=== PATIENT | female | born 1990 | race African-American/Black ===

== ENCOUNTER → 2021-01-09 09:38 | Outpatient (CLI) | payer MEDICAID ==
[2021-01-09 12:14] LABS: BASOPHILS 0.3 % (0-2); EOSINOPHILS 1.5 % (0-7); HEMATOCRIT 24.2 % (36.0-48.0); IMMATURE GRANULOCYTES 0.3 % (0-5); LYMPHOCYTE ABS# 1.91 10x3/uL (1.18-3.74); LYMPHOCYTES 28.4 % (15-50); MCH 22.3 pg (26.0-34.0); MCHC 30.6 g/dL (31.0-37.0); MCV 72.9 fL (80.0-100.0); MEAN PLATELET VOLUME 10.5 fL (7.4-10.4); MONOCYTES 5.1 % (2-11); NEUTROPHIL ABS# 4.33 10x3/uL (1.56-6.13); NEUTROPHILS 64.4 % (40-80); RBC 3.32 10x6/uL (4.00-5.40); RDW 16.7 % (11.5-14.5); WBC 6.7 10x3/uL (4.8-10.8)
[2021-01-09 12:33] LABS: HEMOGLOBIN 7.4 g/dL (12-16); PLATELET COUNT 279 10x3/uL (130-400)
[2021-01-09 15:25] LABS: BILIRUBIN NEGATIVE (NEGATIVE); KETONE NEGATIVE (NEGATIVE); NITRITE NEGATIVE (NEGATIVE); UROBILINOGEN NORMAL mg/dL (< 2)
[2021-01-09 15:31] LABS: SQUAMOUS EPITHELIAL 0-5 HPF (0-4)
[2021-01-09 15:32] LABS: BACTERIA MODERATE HPF (NONE SEEN)
[2021-01-10 08:13] LABS: RAPID PLASMA REAGIN Non Reactive (Non Reactive)
[2021-01-10 10:11] LABS: HEPATITIS C ANTIBODY <0.1 S/CO RAT (0.0-0.9)
[2021-01-10 11:10] LABS: RUBELLA IGG <0.90 index (Immune >0.99)
[2021-01-12 17:08] LABS: HGB SOLUBILITY (SICKLE SCREEN) Negative (Negative)
== END | disposition home or self-care (01) ==
LOC: D.ER 09:38 → D.LDO 09:38 → EDSTATUS 09:57
PROVIDERS: ATTEND Obstetrics & Gynecology
DX: O26.899 Other specified pregnancy related conditions, unspecified trimester (principal)

== ENCOUNTER 2021-02-03 12:53 | Outpatient (CLI) | payer MEDICAID ==
[~2021-02-03] VITALS: Ht 177.8 cm; Wt 97.7 kg
[2021-02-03 13:46] VITALS: Ht 177.8 cm; Wt 97.7 kg
--- NOTE | 2021-02-03 16:18 | NUR ---
DC INSTRUCTIONS GIVEN TO PT. STATES UNDERSTANDING. DC'D IV CATH FULLY INTACT.
--- NOTE | 2021-02-03 16:20 | NUR ---
PT NOT IN DISTRESS. DENIES PAIN/NEEDS POST TRANSFUSION. PT AMBULATED W/ FAMILY AT 1620.
== END 2021-02-03 16:20 | disposition home or self-care (01) ==
LOC: D.OPS 12:53
PROVIDERS: ATTEND Obstetrics & Gynecology
DX: O99.019 Anemia complicating pregnancy, unspecified trimester (principal)

== ENCOUNTER 2021-02-26 02:32 | Outpatient (CLI) | payer MEDICAID ==
[2021-02-03 13:46] VITALS: BMI 30.9
[2021-02-26 03:57] LABS: BASOPHILS 0.2 % (0-2); EOSINOPHILS 1.9 % (0-7); HEMATOCRIT 23.9 % (36.0-48.0); IMMATURE GRANULOCYTES 0.5 % (0-5); LYMPHOCYTE ABS# 3.01 10x3/uL (1.18-3.74); LYMPHOCYTES 30.7 % (15-50); MCH 21.6 pg (26.0-34.0); MCHC 30.1 g/dL (31.0-37.0); MCV 71.6 fL (80.0-100.0); MEAN PLATELET VOLUME 11.2 fL (7.4-10.4); MONOCYTES 4.4 % (2-11); NEUTROPHIL ABS# 6.12 10x3/uL (1.56-6.13); NEUTROPHILS 62.3 % (40-80); RBC 3.34 10x6/uL (4.00-5.40); RDW 18.4 % (11.5-14.5); WBC 9.8 10x3/uL (4.8-10.8)
[2021-02-26 04:01] LABS: PLATELET COUNT 210 10x3/uL (130-400)
[2021-02-26 04:03] LABS: HEMOGLOBIN 7.2 g/dL (12-16)
[2021-02-26 04:06] LABS: BILIRUBIN NEGATIVE (NEGATIVE); KETONE NEGATIVE (NEGATIVE); NITRITE NEGATIVE (NEGATIVE); UROBILINOGEN NORMAL mg/dL (< 2)
[2021-02-26 04:11] LABS: BACTERIA MODERATE HPF (NONE SEEN); SQUAMOUS EPITHELIAL 0-5 HPF (0-4)
== END 2021-02-26 11:58 | disposition home or self-care (01) ==
LOC: D.LDO 02:32
PROVIDERS: ATTEND Obstetrics & Gynecology
DX: O26.893 Other specified pregnancy related conditions, third trimester (principal); Z3A.35 35 weeks gestation of pregnancy; R10.9 Unspecified abdominal pain; M54.5 Low back pain

== ENCOUNTER 2021-03-10 10:08 | Outpatient (CLI) | payer MEDICAID ==
[~2021-03-10] VITALS: Ht 180.3 cm; Wt 95.5 kg
--- NOTE | 2021-03-10 11:32 | NUR ---
PT SUICIDE RISK SCREENING A 2. PT STATES IT WAS 5 YEARS AGO AND SHE WENT TO A "[facility]." STATES SHE IS GOOD NOW, NO INTERVENTIONS NEEDED FROM STAFF.
[2021-03-10 11:34] VITALS: BP 138/94; Ht 180.3 cm; Wt 95.5 kg
--- NOTE | 2021-03-10 12:06 | NUR ---
1146 1ST UNIT OF PRBCS CHECKED AND STARTED. PATIENT SITTING UP IN BED EATING LUNCH
--- NOTE | 2021-03-10 13:59 | NUR ---
1201 INFUSION CONTINUES WITHOUT PROBLEMS. PATIENT TOLERATING WELL. RATE INCREASED TO 200 ML/HR PER INFUSION PUMP 1220 CONTINUES WITHOUT PROBLEMS, INFUSION INCREASED TO 250 ML/HR
--- NOTE | 2021-03-10 14:00 | NUR ---
1318 1ST UNIT PRBCS COMPLETED WITHOUT PROBLEMS. 2ND UNIT PRBCs STARTED AT 75 ML/HR PER INFUSION PUMP 1345 INFUSION CONTINUES WITHOUT PROBLEMS. RATE INCREASED TO 250 ML/HR
--- NOTE | 2021-03-10 14:57 | NUR ---
1457 TRANSFUSION COMPLETED. JESSE TOLERATED TRANSFUSION WITHOUT PROBLEMS, WILL OBSERVE X30 MINUTES/
--- NOTE | 2021-03-10 15:35 | NUR ---
1530 IV REMOVED WITH CATH INTACT. PATIENT DISCHARGED AMBULATORY,, REFUSES TO RIDE IN WC. DENIES ANY CO. DISCHARGE INSTRUSTIONS REVIEWED AND VERBALIZED UNDERSTANDING PRIOR TO DISCHARGE
== END 2021-03-10 15:30 | disposition home or self-care (01) ==
LOC: D.OPS 10:08
PROVIDERS: ATTEND Obstetrics & Gynecology
DX: O99.019 Anemia complicating pregnancy, unspecified trimester (principal)

== ENCOUNTER 2021-03-18 11:42 | Inpatient (IN) | payer MEDICAID ==
[~2021-03-18] VITALS: Ht 180.3 cm; Wt 90.7 kg
[2021-03-18 12:52] LABS: BASOPHILS 0.3 % (0-2); EOSINOPHILS 1.3 % (0-7); HEMATOCRIT 34.3 % (36.0-48.0); HEMOGLOBIN 10.7 g/dL (12-16); IMMATURE GRANULOCYTES 0.1 % (0-5); LYMPHOCYTE ABS# 1.87 10x3/uL (1.18-3.74); LYMPHOCYTES 26.3 % (15-50); MCH 23.4 pg (26.0-34.0); MCHC 31.2 g/dL (31.0-37.0); MCV 75.1 fL (80.0-100.0); MONOCYTES 5.6 % (2-11); NEUTROPHIL ABS# 4.71 10x3/uL (1.56-6.13); NEUTROPHILS 66.4 % (40-80); RBC 4.57 10x6/uL (4.00-5.40); RDW 20.4 % (11.5-14.5); WBC 7.1 10x3/uL (4.8-10.8)
[2021-03-18 12:58] LABS: PLATELET COUNT 159 10x3/uL (130-400)
[2021-03-18 13:07] LABS: ALBUMIN 2.6 g/dL (3.4-5.0); ALKALINE PHOSPHATASE 149 U/L (30-120); ALT (SGPT) 20 U/L (10-68); BILIRUBIN - TOTAL 1.09 mg/dL (0.2-1.3); CALC OSMOLALITY 268 mosm/kg (275-300); CALCIUM 8.8 mg/dL (8.5-10.1); CARBON DIOXIDE 26.9 mmol/L (21.0-32.0); CHLORIDE - SERUM 103 mmol/L (98-107); CREATININE - SERUM 0.6 mg/dL (0.6-1.3); GLUCOSE 70 mg/dL (74-106); POTASSIUM - SERUM 3.7 mmol/L (3.5-5.1); PROTEIN - SERUM 6.2 g/dL (6.4-8.2); SODIUM 137 mmol/L (136-145); UREA NITROGEN 3 mg/dL (7-18); eGFR NON AFRICAN AMERICAN > 90 mL/min (90-120)
[2021-03-18 13:20] VITALS: BP 172/77; BMI 27.9
[2021-03-18 13:54] LABS: BILIRUBIN NEGATIVE (NEGATIVE); KETONE NEGATIVE (NEGATIVE); NITRITE NEGATIVE (NEGATIVE); UROBILINOGEN NORMAL mg/dL (< 2)
[2021-03-18 13:59] LABS: BACTERIA FEW HPF (NONE SEEN); SQUAMOUS EPITHELIAL 0-5 HPF (0-4)
[2021-03-18 14:09] LABS: UDS - AMPHET NEGATIVE QUAL (NEGATIVE); UDS - BARB NEGATIVE QUAL (NEGATIVE); UDS - BENZO NEGATIVE QUAL (NEGATIVE); UDS - COCAINE NEGATIVE QUAL (NEGATIVE); UDS - OPIATE NEGATIVE QUAL (NEGATIVE); UDS - PCP NEGATIVE QUAL (NEGATIVE); UDS - THC POSITIVE QUAL (NEGATIVE)
--- NOTE | 2021-03-18 18:00 | NUR ---
RECEIVED PT TO LD POST SECTION BY DR. BEGUM AND DR. BARTH, SEE FLOWSHEET. SR UP X2, CALL LIGHT AND PHONE WITHIN REACH.
[2021-03-18 18:02] VITALS: BP 152/86
[2021-03-18 18:20] VITALS: BP 147/79
[2021-03-18 19:51] VITALS: BP 153/89
--- NOTE | 2021-03-18 20:00 | NUR ---
PT A,A,OX4. PIV IN RT HAND INFUSING PITOCIN AT 125ML/HR. PIV IN LT HAND SALINE LOCKED. C/D/I. MATA DRAINING TO BEDSIDE DRAINAGE, 100 MLS DARK YELLOW URINE. FF,MIDLINE, U1. SMALL TO MODERATE AMOUNT RUBRA LOCHIA NOTED WITH EGG SIZED CLOT ON PERIPAD. PERICARE DONE AND PERIPADS CHANGED. BP ELEVATED, SEE FLOWSHEET. SEE FULL ASSESSMENT PER FLOWSHEET. SRUPX2. CALL LIGHT WITHIN REACH.
--- NOTE | 2021-03-18 20:15 | NUR ---
DR BEGUM NOTIFIED OF BP. ORDERS RECEIVED TO START PT ON MAG. SEE ORDERS.
--- NOTE | 2021-03-18 21:26 | NUR ---
ZOFRAN ADMINISTERED FOR NAUSEA. SPRITE PROVIDED.
[2021-03-18 21:27] LABS: BASOPHILS 0.1 % (0-2); EOSINOPHILS 0.1 % (0-7); HEMATOCRIT 38.4 % (36.0-48.0); HEMOGLOBIN 12.5 g/dL (12-16); IMMATURE GRANULOCYTES 0.2 % (0-5); LYMPHOCYTES 12.4 % (15-50); MCH 24.8 pg (26.0-34.0); MCHC 32.6 g/dL (31.0-37.0); MONOCYTES 6.5 % (2-11); NEUTROPHIL ABS# 7.79 10x3/uL (1.56-6.13); NEUTROPHILS 80.7 % (40-80); PLATELET COUNT 151 10x3/uL (130-400); RBC 5.05 10x6/uL (4.00-5.40); RDW 19.8 % (11.5-14.5)
[2021-03-18 21:34] LABS: WBC 9.7 10x3/uL (4.8-10.8)
--- NOTE | 2021-03-18 22:00 | NUR ---
DR BEGUM NOTIFIED OF LABS.BP. ORDER RECEIVED FOR LABETOLOL AND MAG SERUM LABS. SEE NURSING MESSAGE.
[2021-03-18 22:35] VITALS: BP 170/97
[2021-03-18 23:30] VITALS: BP 174/100
--- NOTE | 2021-03-18 23:32 | NUR ---
FF,MIDLINE U2. MODERATE AMOUNT RUBRA LOCHIA NOTED ON PERIPADS. PERICARE DONE AND PADS CHANGED.
--- NOTE | 2021-03-18 23:54 | NUR ---
DR BEGUM NOTIFIED OF BP. ORDER RECEIVED TO RECHECK IN 1 HOUR AND CALL .
[2021-03-19] VITALS (14 sets, daily range): BP systolic 146–168; BP diastolic 74–97; Ht 180.3 cm; Wt 90.7 kg
--- NOTE | 2021-03-19 01:57 | NUR ---
ICE WATER AND PILLOW PROVIDED. PT DENIES NEEDS AT THIS TIME.
--- NOTE | 2021-03-19 02:40 | NUR ---
PT AWAKE, RESTING IN BED. VS, DTRS PER FLOWSHEET.
--- NOTE | 2021-03-19 04:37 | NUR ---
LABETOLOL ADMINISTERED PER EMAR. SMALL AMOUNT RUBRA LOCHIA NOTED ON PERIPADS. PERIPAD CHANGED. MATA BAG EMPTIED. 350 MLS YELLOW URINE IN BEDISIDE MATA DRAINAGE CONTAINER. PT DENIES NEEDS AT THIS TIME.
--- NOTE | 2021-03-19 06:24 | NUR ---
ICE WATER AND COKE PROVIDED, PT DENIES OTHER NEEDS AT THIS TIME.
[2021-03-19 07:05] LABS: BASOPHILS 0.4 % (0-2); EOSINOPHILS 0.6 % (0-7); HEMATOCRIT 36.1 % (36.0-48.0); IMMATURE GRANULOCYTES 0.4 % (0-5); LYMPHOCYTE ABS# 1.51 10x3/uL (1.18-3.74); LYMPHOCYTES 17.8 % (15-50); MCH 24.9 pg (26.0-34.0); MCHC 33.2 g/dL (31.0-37.0); MCV 75.1 fL (80.0-100.0); MONOCYTES 5.6 % (2-11); NEUTROPHIL ABS# 6.37 10x3/uL (1.56-6.13); NEUTROPHILS 75.2 % (40-80); PLATELET COUNT 164 10x3/uL (130-400); RBC 4.81 10x6/uL (4.00-5.40); RDW 19.9 % (11.5-14.5); WBC 8.5 10x3/uL (4.8-10.8)
--- NOTE | 2021-03-19 07:31 | NUR ---
SHIFT ASSESSMENT COMPLETED PER FLOWSHEET. VSS. FF, MIDLINE AND U2 WITH SMALL AMT RUBRA LOCHIA, NO CLOTS NOTED. REPORTS THAT SHE HAS NOT PASSED FLATUS, BUT IS BELCHING OCCASIONALLY. RESP CLEAR AND EQUAL. DTR'S +2 TO BLE. 2+ BLE PITTING EDEMA. SCD'S ON BLE. INCENTIVE SPIROMETER DONE X10 AND COUGH/DEEP BREATHING DONE WITH GOOD EFFORT. DRSG TO LOWER TRANSVERSE ABD INCISION CLEAN DRY AND INTACT, NO DRAINAGE NOTED. I&O DONE PER FLOWSHEET. ICE PACK AND ICE WATER PROVIDED PER REQUEST. INFANT PLACED IN ARMS PER PT REQUEST. SIG OTHER AT BEDSIDE, SUPPORTIVE AND ATTENTIVE TO PT AND INFANT NEEDS.
[2021-03-19 08:14] LABS: RAPID PLASMA REAGIN Non Reactive (Non Reactive)
--- NOTE | 2021-03-19 08:30 | NUR ---
MG CHECK DONE PER FLOWSHEET. B/P 150/93. PERICARE DONE, PADS AND CHUX CHANGED. REPOSITIONED FROM BACK TO L SIDE WITH MIN ASSIST, PILLOWS PLACED BEHIND BACK. SCD'S REMAIN ON BLE. INCENTIVE SPIROMETER DONE X10, COUGH/DEEP BREATHING DONE WITH GOOD EFFORT.
--- NOTE | 2021-03-19 08:43 | NUR ---
DR. BEGUM PAGED WITH IMMEDIATE CALL BACK. B/P READINGS REVIEWED AND MG LAB. ORDERS REC'D.
--- NOTE | 2021-03-19 09:50 | NUR ---
MGSO4 CHECK PER FLOWSHEET. VSS. C/O ABD AND INCISIONAL DISCOMFORT, 5-6, REQUESTS TORADOL. INCENTIVE SPIROMETER DONE X10, COUGH/DEEP BREATHING DONE WITH GOOD EFFORT. SCD'S ON BLE. DENIES NEEDS. BED IN LOW POSITION WITH SRUP X2.
--- NOTE | 2021-03-19 10:01 | NUR ---
TORADOL ADMINISTERED PER FLOWSHEET. DENIES ADDITIONAL NEEDS. REPOSITIONED INDEPENDENTLY TO R SIDE. SCD'S ON BLE. INCENTIVE SPIROMETER DONE X10. COUGH AND DEEP BREATHING DONE WITH GOOD EFFORT.
--- NOTE | 2021-03-19 10:48 | NUR ---
MGSO4 CHECK DONE PER FLOWSHEET. VSS. ICE WATER PROVIDED. PERICARE DONE AND PADS CHANGED. DENIES PAIN.
--- NOTE | 2021-03-19 11:32 | NUR ---
MGSO4 CHECK DONE PER FLOWSHEET. VSS. FF, MIDLINE AND U2 WITH SMALL AMT RUBRA LOCHIA, NO CLOTS NOTED. SIG OTHER RESTING ON COUCH AT BEDSIDE. REFUSES INCENTIVE SPIROMETER DONE X10. SCD'S REMAIN ON BLE.
--- NOTE | 2021-03-19 12:21 | NUR ---
DR. BEGUM PAGED TO DISCUSS ADVANCING DIET AND D/C'ING MGSO4 PER PT STATEMENT.
--- NOTE | 2021-03-19 12:58 | NUR ---
MGSO4 D/C'D PER ORDER. L HAND PIV REMOVED WITH TIP INTACT. R HAND PIV SL. MATA D/C'D WITH 400 MLS YELLOW URINE PRESENT. POC DISCUSSED WITH PT AND SIG OTHER, BOTH VERBALIZE UNDERSTANDING. INFANT TO ROOM PER PT REQUEST. BED IN LOW POSITION WITH SRUP X2. CALL LIGHT AND PHONE WITHIN REACH. WILL CONTINUE TO MONITOR.
--- NOTE | 2021-03-19 14:38 | NUR ---
MEDICATED PER EMAR FOR C/O OF ABD AND INCISIONAL DISCOMFORT. UP TO BR, WITH STANDBY ASSIST, STEADY GAIT NOTED. VOIDED 400 MLS IN HAT WITHOUT DIFFICULTY. PERICARE DONE. PADS AND PANTIES PROVIDED. GOWN CHANGED. ORAL CARE PER PT. DENIES ADDITIONAL NEEDS. PT SITTING ON EDGE OF BED AND DENIES NEEDS. CALL LIGHT PLACED WITHIN REACH. BED IN LOW POSITION WITH SRUP X2.
--- NOTE | 2021-03-19 15:29 | NUR ---
PAIN REASSESSMENT COMPLETED. 01/14. DENIES NEED FOR ADDITIONAL INTERVENTION. BED IN LOW POSITION WITH SRUP X2. CALL LIGHT AND PHONE WITHIN REACH. WILL CONTINUE TO MONITOR. ICE WATER PROVIDED.
--- NOTE | 2021-03-19 16:23 | NUR ---
RESTING WITH EYES CLOSED IN SEMI-FOWLERS POSITION, RESP REGULAR AND UNLABORED, NO S/S OF DISTRESS NOTED. IN NBN. BED IN LOW POSITION WITH SRUP X2. CALL LIGHT AND PHONE WITHIN REACH.
--- NOTE | 2021-03-19 17:41 | NUR ---
C/O ABD AND INCISIONAL DISCOMFORT/SORENESS. B/P ELEVATED AT 169/96, REPORTS TAHT SHE JUST GOT BACK TO BED FROM VOIDING. FF, MIDLINE AND U2 WITH SCANT RUBRA LOCHIA, NO CLOTS NOTED. WILL RECHECK B/P IN 15-20 MINUTES. INFANT TO ROOM PER PT REQUEST. ICE WATER PROVIDED.
--- NOTE | 2021-03-19 18:09 | NUR ---
REQUEST NORCO AND PROVIDED PER ORDER AND PT REQUEST. SIG OTHER AT BEDSIDE AND PT ARGUING WITH HIM AT THIS TIME. B/P 168/97. PT REPORTS THAT SHE IS IRRIATED WITH SIG OTHER AND HURTING. WILL NOTIFY
--- NOTE | 2021-03-19 18:15 | NUR ---
DR. BARTH CONTACTED, B/P READINGS REPORTED WELL PT REPORTS OF PAIN AND ARGUING WITH SIG OTHER, BEING ASSYMPTOMATIC. INTERVENTIONS DONE REPORTED. ORDERS REC'D.
--- NOTE | 2021-03-19 18:20 | NUR ---
PT UPDATED ON POC REGARDING ELEVATED B/P, VERBALIZES UNDERSTANDING. MEDICATED PER EMAR. RESTING IN OPEN CRIB AT BEDSIDE, PT REQUESTS TO KEEP INFANT AT BEDSIDE. ICE WATER PROVIDED, DENIES ADDITIONAL NEEDS. PAIN 02/14.
--- NOTE | 2021-03-19 18:50 | NUR ---
DR BARTH CALLS UNIT REQUESTING REPORT ON BP READING. SAME PROVIDED. NEW ORDERS FOR PROCARDIA 10MG X1 TAB NOW AND THEN FOLLOW UP WITH 100MG LABETALOL Q8H.
--- NOTE | 2021-03-19 19:25 | NUR ---
RN TO BEDSIDE. SHIFT ASSESSMENT COMPLETED AT THIS TIME. SEE FLOWSHEET. PROCARDIA 10MG X1 TAB GIVEN PER ORDERS. SEE EMAR FOR ADMINISTRATION. INFANT SWADDLED IN BLANKETS X2 PER REQUEST AND HANDED BACK TO PT. HR-RRR, PPP, LUNGS CTAB, BS X4. PT RATES PAIN 3/10 AND TOLERABLE. DENIES FURTHER NEEDS AT THIS TIME. WILL CONTINUE TO MONITOR.
--- NOTE | 2021-03-19 20:55 | NUR ---
MILK OF MAG GIVEN PER ORDERS. SEE EMAR FOR ADMINISTRATION. PT DENIES FURTHER NEEDS AT THIS TIME.
--- NOTE | 2021-03-19 21:26 | NUR ---
ROUNDS MADE. 600ML BLOOD TINGED URINE EMPTIED FROM [place] HAT. ADV PT SHE NO LONGER NEEDS TO COLLECT URINE. UNDERSTANDING VERBALIZED. PT WAS SITTING UP IN BED HOLDING/ROCKING STATING, "SHE'S JUST FUSSING." INFANT SWADDLED IN BLANKETS X2 WITH HAT IN PLACE AND PLACED SUPINE IN OPEN CRIB AT BEDSIDE. NO FURTHER NEEDS VOICED AT THIS TIME.
--- NOTE | 2021-03-19 22:06 | NUR ---
NORCO 10/325MG X1 TAB GIVEN PER ORDERS FOR PAIN RATED 5/10 AT THIS TIME. PT DENIES FURTHER NEEDS. WILL CONTINUE TO MONITOR.
[2021-03-20] VITALS (8 sets, daily range): BP systolic 143–171; BP diastolic 82–101
--- NOTE | 2021-03-20 00:46 | NUR ---
PT REQUESTS INFANT TO NBN. K. REASONS, RN TO ROOM FOR SAME. PT DENIES PAIN OR NEEDS. WILL CONTINUE TO MONITOR.
--- NOTE | 2021-03-20 02:05 | NUR ---
RN TO BEDSIDE. PT AWAKENED TO LIGHT VERBAL STIMULI. RATES PAIN 5/10 AT THIS TIME. VSS. LABETALOL 100MG X1 TAB GIVEN PER ORDERS. NORCO 10/325MG X1 TAB GIVEN PER ORDERS AND PT REQUEST. SEE EMAR FOR ADMINISTRATION. NBN TO ROOM WITH . LEFT IN OPEN CRIB AT BEDSIDE, SLEEPING. NO FURTHER NEEDS VOICED. WILL CONTINUE TO MONITOR.
--- NOTE | 2021-03-20 04:50 | NUR ---
rounds made. mom sitting up in bed with up in arms. denies pain or needs at this time.
--- NOTE | 2021-03-20 06:25 | NUR ---
ROUNDS MADE. PT SITTING UP IN BED WITH INFANT UP IN ARMS. DENIES PAIN OR NEEDS.
--- NOTE | 2021-03-20 07:21 | NUR ---
RESTING QUIETLY IN SEMI-FOWLERS POSITION WITH EYES CLOSED. RESP REGULAR AND UNLABORED, NO S/S OF DISTRESS NOTED. SIG OTHER RESTING ON COUCH AT BEDSIDE. BED IN LOW POSITION WITH SRUP X2. CALL LIGHT AND PHONE WITHIN REACH.
--- NOTE | 2021-03-20 08:47 | NUR ---
SHIFT ASSESSMENT COMPLETED PER FLOWSHEET, B/P ELEVATED, WILL NOTIFY MD. C/O ABD AND INCISIONAL DISCOMFORT AND HEADACHE. MEDICATED PER EMAR. FF, MIDLINE AND U2 WITH SMALL AMT RUBRA LOCHIA, NO CLOTS NOTED. REPORTS THAT SHE IS PASSING FLATUS AND VOIDING WITHOUT DIFFICULTY, REQUESTS GAS-X AND PROVIDED PER REQUEST. LOWER TRANSVERSE ABD INCISION WELL APPROXIMATED WITH ALISSA INTACT. EDUCATED ON INCISIONAL CARE, VERBALIZES UNDERSTANDING AND DENIES QUESTIONS. POC DISCUSSED WITH PT, VERALIZES UNDERSTANDING AND DENIES QUESTIONS. BED IN LOW POSITION WITH SRUP X2. REFUSES SCD'S, EDUCATION PROVIDED. SIG OTHER VOICING THAT HE IS TIRED D/T HAVING TO BE UP AT 0300 TO CARE FOR INFANT, POLICY EXPLAINED. PT VERBALIZES TO SIG OTHER THAT SHE IS IRRITATED AND TIRED OF HIM COMPLAINING ABOUT CARING FOR INFANT. SIG OTHER ENCOURAGED TO LEAVE UNIT, STATES THAT HE NEEDS TO GO TO HOME AND WILL RETURN AT A LATER TIME. LIGHTS OFF AND PT ENCOURAGED TO REST.
--- NOTE | 2021-03-20 08:54 | NUR ---
DR. BEGUM PAGED TO REPORT B/P READINGS AND INTERVENTIONS AT THIS TIME.
--- NOTE | 2021-03-20 08:56 | NUR ---
CALLBACK TO UNIT REC'D FROM DR. BEGUM. B/P READINGS AND INTERVENTIONS REPORTED. UPDATED ON LAST MED DOSES. PER DR. BEGUM REPEAT B/P AND REPORT BACK IN 30 MINUTES.
--- NOTE | 2021-03-20 09:29 | NUR ---
PAIN REASSESSMENT COMPLETED. 01/14. REPORTS HEADACHE IS IMPROVING. B/P RECHECK DONE, 141/89. CURRENTLY IN SEMI-FOWLERS POSITION WITH LIGHTS OFF, IN NBN AND SIG OTHER OUT OF ROOM CURRENTLY. UPDATED ON POC, VERBALIZES UNDERSTANDING AND APPRECIATION.
--- NOTE | 2021-03-20 09:35 | NUR ---
DR. BEGUM PAGED TO NOTIFY OF REPEAT B/P READING AND PT REPORTS OF IMPROVING HEADACHE. NO ORDERS REC'D.
[2021-03-20 11:11] LABS: UDSC - AMPHET Negative ng/mL (Cutoff=1000); UDSC - BARB Negative ng/mL (Cutoff=300); UDSC - BENZO Negative ng/mL (Cutoff=300); UDSC - COC Negative ng/mL (Cutoff=300); UDSC - METH Negative ng/mL (Cutoff=300); UDSC - OPIATES Negative ng/mL (Cutoff=300); UDSC - PCP Negative ng/mL (Cutoff=25); UDSC - PROPOXY Negative ng/mL (Cutoff=300)
--- NOTE | 2021-03-20 12:11 | NUR ---
DR. BEGUM CALLS UNIT, B/P READING REPORTED. ORDERS REC'D.
--- NOTE | 2021-03-20 15:39 | NUR ---
C/O SLIGHT HEADACHE AND ABD CRAMPING, 12/17. B/P RECHECK DONE, WILL NOTIFY DR. BEGUM. DR. ALCARAZ AT BEDSIDE, DISCUSSING POC OF WITH PT. ICE WATER PROVIDED. LIGHTS OFF AND PT ENCOURAGED TO REST. ON PHONE WITH SIG OTHER AT THIS [place]URE[place]. BED IN LOW POSITION WITH SRUP X2. CALL LIGHT AND PHONE WITHIN REACH.
--- NOTE | 2021-03-20 15:57 | NUR ---
DR. BEGUM PAGED WITH IMMEDIATE CALLBACK. B/P READING AND C/O "SLIGHT" HEADACHE REPORTED. ORDERS REC'D.
--- NOTE | 2021-03-20 17:39 | NUR ---
Procardia XL given as scanned to emar. Pt rates pain at 4/10, [place] given po. Bonding with , call light in reach with side rails up x 2.
--- NOTE | 2021-03-20 19:00 | NUR ---
RECEIVED SHIFT REPORT FROM TREY BERRY RN
--- NOTE | 2021-03-20 19:45 | NUR ---
ASSESSMENT PER FLOW SHEET, VS OBTAINED, SALINE LOCK IN RIGHT HAND INTACT WITH NO REDNESS OR EDEMA, FF, ML, U/2, SCANT VAG BLEEDING WITH NO CLOTS NOTES, BIKINI INC WITH ALISSA CDI WIT NO DRAIANGE NOTED, YU PAD OVER INC FOR COMFORT AND MOISTURE CONTROL, PT REPORTS FLATUS, NO BM TODAY, AND VOIDING WITH NO DIFFICULTY, PT REPORTS PAIN 3/10, REQUESTED AND SERVED SANDWICH TRAY AND FRESH H20, INFORMED PT THAT I WILL TALK TO DR BARTH ABOUT BP, PT VERBALIZES UNDERSTANDING, DENIES FURTHER NEEDS OR QUESTIONS AT THIS TIME, INFANT IN OPEN CRIB CART AT BEDSIDE
--- NOTE | 2021-03-20 20:00 | NUR ---
DR BARTH ON UNIT, REPORT OF BP, ORDERS TO ADM PROCARDIA 10MG PO NOW AND NOTIFY HER IF BP IS 160/90
--- NOTE | 2021-03-20 20:20 | NUR ---
PT BOTTLE FEEDING INFANT, INFORMED PT THAT I WILL ADM PROCARDIA SOON IT IT PLACED ON EMAR BY PHARMACY, PT VERBALIZES UNDERSTANDING
--- NOTE | 2021-03-20 20:35 | NUR ---
PT HOLDING INFANT, ADM PROCARDIA 10MG PER MD ORDERS, SEE EMAR, PT DENIES ANY NEEDS AT THIS TIME
--- NOTE | 2021-03-20 21:16 | NUR ---
PT AWAKE, HOLDING INFANT, WENT TO ADM MOM AND AFTER OPENING IT UP, PT DECIDED SHE DIDN'T WANT TO TAKE IT, BP OBTAINED, PT RATES INC PAIN 3-4, INFORMED PT THAT I WILL BRING PAIN MED BACK IN A FEW MINUTES, PT VERBALIZES UNDERSTANDING
--- NOTE | 2021-03-20 21:24 | NUR ---
DR BARTH ON UNIT, REPORT OF BP, ORDERS TO GO AHEAD AND ADM PAIN MED AND RECHECK BP IN AN HOUR, ORDERS READ BACK AND VERIFIED
--- NOTE | 2021-03-20 21:27 | NUR ---
ADM KEYS PER MD ORDERS, SEE EMAR, PT DENIES FURTHER NEEDS
--- NOTE | 2021-03-20 22:23 | NUR ---
PT AWAKE, HOLDING INFANT, OBTAINED BP, PT DENIES PAIN OR BECERRA, DENIES NEEDS AT THIS TIME, FOB AT BEDSIDE
--- NOTE | 2021-03-20 22:27 | NUR ---
DR BARTH ON UNIT, REPORT OF BP, DR BARTH WILL WRITE ORDERS
--- NOTE | 2021-03-20 22:38 | NUR ---
DR BARTH REPORTS TO ADM PROCARDIA 10MG PO NOW
--- NOTE | 2021-03-20 22:43 | NUR ---
BEFORE ADM OF PROCARDIA, BP OBTAINED AGAIN, BP 155/89, INFORMED DR BARTH, DR BARTH REPORTS TO HOLD PROCARDIA AT THIS TIME, RETAKE BP IN ABOUT 45 MINUTES, AND IF BP IS 160/90, GO AHEAD AND ADM PROCARDIA, ORDERS READ BACK AND VERIFIED
--- NOTE | 2021-03-20 23:12 | NUR ---
PT AWAKE, HOLDING INFANT, VS OBTAINED, PT REQUESTED AND SERVED FRESH H20, DENIES FURTHER NEEDS OR PAIN AT THIS TIME, FOB ASLEEP AT BEDSIDE
--- NOTE | 2021-03-20 23:28 | NUR ---
DR BARTH ON UNIT, REPORT OF BP, ORDERS TO HOLD PROCARDIA AT THIS TIME
--- NOTE | 2021-03-21 02:03 | NUR ---
PT AWAKE, HOLDING INFANT, C/O INC PAIN AND CRAMPING, ADM NORCO AND MOTRIN PER MD ORDERS, SEE EMAR, PT DENIES FURTHER NEEDS, FOB ASLEEP AT BEDSIDE
[2021-03-21 04:05] VITALS: BP 163/91
--- NOTE | 2021-03-21 04:05 | NUR ---
PT AWAKE, HOLDING INFANT, VS OBTAINED, TO NSY VIA OPEN CRIB CART PER THIS RN
--- NOTE | 2021-03-21 04:10 | NUR ---
DR BARTH ON UNIT, REPORT OF BP 163/91, ORDERS TO ADM PROCARDIA 10MG
--- NOTE | 2021-03-21 04:11 | NUR ---
ADM PROCARDIA PO PER MD ORDERS, SEE EMAR
[2021-03-21 05:54] VITALS: BP 130/77
--- NOTE | 2021-03-21 05:54 | NUR ---
PT RESTING, OBTAINED BP, PT DENIES NEEDS OR PAIN AT THIS TIME, IN OPEN CRIB CART AND FOB AT BEDSIDE
--- NOTE | 2021-03-21 06:56 | NUR ---
SHIFT REPORT TO DAY SHIFT
[2021-03-21 08:30] VITALS: BP 174/104
[2021-03-21 10:08] VITALS: BP 178/96
[2021-03-21 10:09] VITALS: BP 163/85
== END 2021-03-21 12:16 | disposition left against medical advice (07) | DRG 785 ==
LOC: D.LDO 11:42 → D.LD 13:16
PROVIDERS: ADMIT Obstetrics & Gynecology; ATTEND Obstetrics & Gynecology
PROC: 0UB70ZZ Excision of Bilateral Fallopian Tubes, Open Approach (ICD-10-PCS; 2021-03-18)
PROC: 10D00Z1 Extraction of Products of Conception, Low, Open Approach (ICD-10-PCS; principal; 2021-03-18 13:00)
DX: O14.94 Unspecified pre-eclampsia, complicating childbirth (principal); Z3A.37 37 weeks gestation of pregnancy; Z37.0 Single live birth; O34.219 Maternal care for unspecified type scar from previous cesarean delivery; Z30.2 Encounter for sterilization

== ENCOUNTER 2021-03-23 14:10 | Inpatient (IN) | payer MEDICAID ==
[~2021-03-23] VITALS: Ht 180.3 cm; Wt 89.7 kg
--- NOTE | 2021-03-23 14:25 | NUR ---
ARRIVED TO ED C/O PAIN IN SPINE AND STOMACH. ALSO C/O N/V. PT IS S/P CSECTION X 2 DAYS. UPON ARRIVAL B/P WAS 204/105 WITH HR OF 47. EKG DONE, IV SITED AND B/P 203/100 WITH HR 59. HYDRAZALINE 10MG ADMINISTERED ALONG WITH 8 OF ZOFRAN. B/P AT 195/98. MAG SULFATE STARTED IV OVER 1 HOUR. ANOTHER 10MG OF HYDRAZALINE ADMINISTERED IV B/P 188/104 CARDIOLOGY HERE AND 60MG OF PROCARDIA ORDERED PO ALONG WITH POTASSIUM PO. 1540: OFF TO XRAY FOR CT B/P 166/97
[2021-03-23 14:43] LABS: HEMATOCRIT 34.9 % (36.0-48.0); HEMOGLOBIN 11.2 g/dL (12-16); LYMPHOCYTES 23.4 % (15-50); MCH 24.5 pg (26.0-34.0); MCHC 32.2 g/dL (31.0-37.0); MCV 75.9 fL (80.0-100.0); MEAN PLATELET VOLUME 9.3 fL (7.4-10.4); NEUTROPHILS 66.6 % (40-80); RDW 23.7 % (11.5-14.5); WBC 8.9 10x3/uL (4.8-10.8)
[2021-03-23 14:48] LABS: CALC OSMOLALITY 273 mosm/kg (275-300); CALCIUM 8.9 mg/dL (8.5-10.1); CARBON DIOXIDE 28.5 mmol/L (21.0-32.0); CHLORIDE - SERUM 105 mmol/L (98-107); CREATININE - SERUM 0.6 mg/dL (0.6-1.3); GLUCOSE 86 mg/dL (74-106); POTASSIUM - SERUM 3.1 mmol/L (3.5-5.1); SODIUM 139 mmol/L (136-145); UREA NITROGEN 5 mg/dL (7-18); eGFR NON AFRICAN AMERICAN > 90 mL/min (90-120)
[2021-03-23 14:54] LABS: ALBUMIN 2.6 g/dL (3.4-5.0); ALKALINE PHOSPHATASE 104 U/L (30-120); ALT (SGPT) 36 U/L (10-68); BILIRUBIN - TOTAL 0.83 mg/dL (0.2-1.3); MAGNESIUM - SERUM 1.6 mg/dL (1.8-2.4); PROTEIN - SERUM 6.6 g/dL (6.4-8.2)
[2021-03-23 14:55] LABS: PLATELET COUNT 280 10x3/uL (130-400)
[2021-03-23 16:21] LABS: CKMB 0.9 U/L (0.0-3.6); CREATINE KINASE 108 UL (21-215); TROPONIN-I < 0.017 ng/mL (0.000-0.060)
[2021-03-23 18:43] LABS: BILIRUBIN NEGATIVE (NEGATIVE); KETONE NEGATIVE (NEGATIVE); NITRITE NEGATIVE (NEGATIVE); UROBILINOGEN NORMAL mg/dL (< 2)
[2021-03-23 18:44] LABS: BACTERIA MODERATE HPF (NONE SEEN); SQUAMOUS EPITHELIAL 0-5 HPF (0-4); WHITE CELLS - URINE 0-5 HPF (0-4)
[2021-03-23 19:16] VITALS: BP 182/93
[2021-03-23 19:51] LABS: % SATURATION 15 % (15-55); IRON 53 ug/dl (35-150); TOTAL IRON BIND CAPACITY 334 ug/dl (260-445); UNSAT IRON BIND CAPACITY 281 ug/dl (150-375)
[2021-03-23 20:45] LABS: UDS - AMPHET NEGATIVE QUAL (NEGATIVE); UDS - BARB NEGATIVE QUAL (NEGATIVE); UDS - BENZO NEGATIVE QUAL (NEGATIVE); UDS - COCAINE NEGATIVE QUAL (NEGATIVE); UDS - OPIATE NEGATIVE QUAL (NEGATIVE); UDS - PCP NEGATIVE QUAL (NEGATIVE); UDS - THC POSITIVE QUAL (NEGATIVE)
[2021-03-23 21:58] VITALS: BP 141/75; BMI 27.5
--- NOTE | 2021-03-23 22:17 | NUR ---
RECIEVED REPORT FROM [facility] IN ER. ARRIVED TO FLOOR IN A W/C. TRANSFERED SELF TO BED. ASSESSMENT COMPLETED.
[2021-03-23 22:50] LABS: APTT 28.4 SECONDS (22.8-39.4); INR 1.09 (0.85-1.17); PROTIME 13.1 SECONDS (11.6-15.0)
[2021-03-23 23:05] LABS: CKMB 0.6 U/L (0.0-3.6); CREATINE KINASE 67 UL (21-215)
[2021-03-23 23:06] LABS: D-DIMER-QUANTITATIVE 7.61 ug/mLFEU (0.20-0.54)
[2021-03-23 23:10] LABS: TROPONIN-I < 0.017 ng/mL (0.000-0.060)
--- NOTE | 2021-03-23 23:32 | NUR ---
LAB CALLED TO REPORT ELEVATED D-DIMER. CALLED DONNA GARZA WITH NEW ORDER FOR CTA CHEST PROTOCOL. CARLEEN IN IMAGING CALLED AND INFORMED THIS NURSE THAT SHE HAS ALREADY HAD CONTRAST AT 1500 TODAY. CALLED DONNA GARZA BACK WITHORDERS TO BE DONE FIRST THING IN AM. NOTIFIED CARLEEN IN XRAY.
[2021-03-24] VITALS: BP 154/84
[2021-03-24 03:50] LABS: BASOPHILS 1.1 % (0-2); EOSINOPHILS 3.2 % (0-7); HEMATOCRIT 31.4 % (36.0-48.0); HEMOGLOBIN 10.4 g/dL (12-16); LYMPHOCYTES 32.7 % (15-50); MCH 25.2 pg (26.0-34.0); MCHC 33.2 g/dL (31.0-37.0); MCV 75.7 fL (80.0-100.0); MEAN PLATELET VOLUME 8.3 fL (7.4-10.4); MONOCYTES 4.8 % (2-11); NEUTROPHILS 58.2 % (40-80); PLATELET COUNT 253 10x3/uL (130-400); RBC 4.15 10x6/uL (4.00-5.40); RDW 23.8 % (11.5-14.5); WBC 7.5 10x3/uL (4.8-10.8)
[2021-03-24 04:00] VITALS: BP 132/86
[2021-03-24 04:22] LABS: ALBUMIN 2.2 g/dL (3.4-5.0); ALKALINE PHOSPHATASE 87 U/L (30-120); ALT (SGPT) 27 U/L (10-68); BILIRUBIN - TOTAL 0.67 mg/dL (0.2-1.3); CALC OSMOLALITY 280 mosm/kg (275-300); CALCIUM 8.1 mg/dL (8.5-10.1); CARBON DIOXIDE 28.4 mmol/L (21.0-32.0); CHLORIDE - SERUM 108 mmol/L (98-107); CKMB 0.6 U/L (0.0-3.6); CREATINE KINASE 59 UL (21-215); CREATININE - SERUM 0.6 mg/dL (0.6-1.3); GLUCOSE 88 mg/dL (74-106); MAGNESIUM - SERUM 1.8 mg/dL (1.8-2.4); PROTEIN - SERUM 5.5 g/dL (6.4-8.2); SODIUM 143 mmol/L (136-145); TROPONIN-I 0.018 ng/mL (0.000-0.060); UREA NITROGEN 4 mg/dL (7-18); eGFR NON AFRICAN AMERICAN > 90 mL/min (90-120)
[2021-03-24 08:20] VITALS: Ht 180.3 cm; Wt 89.7 kg
[2021-03-24 10:13] LABS: CKMB 0.6 U/L (0.0-3.6); CREATINE KINASE 62 UL (21-215)
[2021-03-24 10:14] LABS: TROPONIN-I < 0.017 ng/mL (0.000-0.060)
--- NOTE | 2021-03-24 11:31 | NUR ---
CALLED [facility] REGARDING CLEARANCE FOR D/C. CLEARANCE GIVEN WITH HOME MEDICATION PRESCRIBED BY CARDIOLOGY. NOTIFIED ABRIL LAINEZ REGARDING D/C.
[2021-03-24] MEDS ORDERED: FLAGYL500 MG PO (11:33)
[2021-03-24] MEDS ORDERED: PROCARDIA XL60 MG PO (11:33)
[2021-03-24] MEDS ORDERED: CIPRO500 MG PO (11:34)
--- NOTE | 2021-03-24 11:45 | NUR ---
NOTIFIED PT REGARDING D/C PLAN, PT STATES UNDERSTANDING AND DENIES ANY QUESTIONS. PT CALLED FAMILY FOR TRANSPORTATION HOME.
--- NOTE | 2021-03-24 13:48 | NUR ---
PT RECIEVED DISCHARGE INSTRUCTIONS AT THIS TIME, INCLUDING MEDICATIONS AND FOLLOW UP APPTS, PT VERBALIZED UNDERSTANDING. IV D/C AT THIS TIME WITH [facility] CDI. PT ON PHONE FOR TRANSPORTATION HOME.
--- NOTE | 2021-03-24 14:22 | NUR ---
PT WHEELED TO PRIVATE VEHICLE WITH ALL BELONGINGS AT THIS TIME. NO DISTRESS NOTED ON DEPARTURE.
== END 2021-03-24 14:23 | disposition home or self-care (01) | DRG 776 ==
LOC: D.ER 14:10 → D.M2 18:09
PROVIDERS: Family Medicine; ADMIT Family Medicine Adult Medicine; ATTEND Family Medicine Adult Medicine
DX: O16.5 Unspecified maternal hypertension, complicating the puerperium (principal); I16.1 Hypertensive emergency; N39.0 Urinary tract infection, site not specified; R00.1 Bradycardia, unspecified; K21.9 Gastro-esophageal reflux disease without esophagitis; E87.6 Hypokalemia; E83.42 Hypomagnesemia; D50.9 Iron deficiency anemia, unspecified; I44.1 Atrioventricular block, second degree

== ENCOUNTER 2021-04-14 09:51 | Emergency (ER) | payer MEDICAID ==
[~2021-04-14] VITALS: Ht 180.3 cm; Wt 86.4 kg
[~2021-04-14 09:51] MED LIST: CIPRO500 MG PO; FLAGYL500 MG PO; PROCARDIA XL60 MG PO
[2021-04-14 09:59] VITALS: BP 198/137; Ht 180.3 cm; Wt 86.4 kg
[2021-04-14] MEDS ORDERED: HYDROCODONE-AC1 EAC2 PO (11:18)
[2021-04-14] MEDS ORDERED: NAPROSYN500 MG PO (11:18)
== END 2021-04-14 11:31 | disposition home or self-care (01) ==
LOC: D.ER 09:51
DX: S00.83XA Contusion of other part of head, initial encounter (principal); I10 Essential (primary) hypertension; K21.9 Gastro-esophageal reflux disease without esophagitis; Z72.0 Tobacco use; R51.9 Headache, unspecified; M54.2 Cervicalgia; Y09 Assault by unspecified means